=== PATIENT | female | born 1955 | race Caucasian/White ===

== ENCOUNTER 2018-11-25 17:29 | Emergency (ER) | payer MEDICARE ==
--- OUTSIDE RECORDS SUMMARY | ~2018-11-25 | XMS | Clinical Summary ---
Demographics + + + | Address | [address] | | | [place] [address] | + + + | Home Phone | | + + + | Preferred Language | Unknown | + + + | Marital Status | Single | + + + | Anglican Affiliation | Unknown | + + + | Race | Unknown | + + + | Ethnic Group | Unknown | + + + Author + + + | Author | [facility] | + + + | Organization | [facility] | + + + | Address | Unknown | + + + | Phone | Unavailable | + + + Support + + +---------+ + | Name | Relationship | Address | Phone | + + +---------+ + | Ezequiel Chaudhary | ECON | Unknown | | + + +---------+ + Care Team Providers + +------+ + | Care Inspector Subassemblies Name | Role | Phone | + +------+ + | Dr. Felipe | PP | Unavailable | + +------+ + Allergies No Known Allergies Current Medications + + +-------+---------+------+------+-------+ | Prescription | Sig. | Disp. | Refills | Star | End | Statu | | | | | | t | Date | s | | | | | | Date | | | + + +-------+---------+------+------+-------+ | fluoxetine | Take 20 mg by mouth | | | | | Activ | | (PROZAC) 20 MG | daily. | | | | | e | | capsule | | | | | | | + + +-------+---------+------+------+-------+ | tramadol (ULTRAM) | Take 50 mg by mouth | | | | | Activ | | 50 MG tablet | 3 (three) times | | | | | e | | | daily. | | | | | | + + +-------+---------+------+------+-------+ | omeprazole | Take 20 mg by mouth | | | | | Activ | | (PRILOSEC) 20 MG | daily. | | | | | e | | capsule | | | | | | | + + +-------+---------+------+------+-------+ Active Problems + + + | Problem | Noted Date | + + + | Other and unspecified hyperlipidemia | 09/24/2011 | + + + | TSH elevation | 09/23/2011 | + + + | GERD (gastroesophageal reflux disease) | 09/23/2011 | + + + | NSTEMI (non-ST elevated myocardial infarction) | 09/22/2011 | + + + | Palpitations | 09/22/2011 | + + + Family History + + +------+ + | Medical History | Relation | Name | Comments | + + +------+ + | Diabetes type I | Mother | | | + + +------+ + | Thyroid disease | Mother | | | + + +------+ + | Diabetes type I | Sister | | | + + +------+ + + +------+--------+ + | Relation | Name | Status | Comments | + +------+--------+ + | Mother | | | | + +------+--------+ + | Sister | | | | + +------+--------+ + Social History + +-------+ +--------+------+ | Tobacco Use | Types | Packs/Day | Years | Date | | | | | Used | | + +-------+ +--------+------+ | Never Smoker | | | | | + +-------+ +--------+------+ + +---+---+---+ | Smokeless Tobacco: | | | | | Never Used | | | | + +---+---+---+ + + +---------+ + | Alcohol Use | Drinks/We | oz/Week | Comments | | | ek | | | + + +---------+ + | Yes | | | occasionally | + + +---------+ + + + + | Sex Assigned at | Date Recorded | | | | + + + | Not on file | | + + + Last Filed Vital Signs + + + + | Vital Sign | Reading | Time Taken | + + + + | Blood Pressure | 121/57 | 09/24/2011 7:22 AM PST | + + + + | Pulse | 44 | 09/24/2011 7:22 AM PST | + + + + | Temperature | 36.8 C (98.3 F) | 09/24/2011 7:22 AM PST | + + + + | Respiratory Rate | 18 | 09/24/2011 7:22 AM PST | + + + + | Oxygen Saturation | 100% | 09/24/2011 7:22 AM PST | + + + + | Inhaled Oxygen | - | - | | Concentration | | | + + + + | Weight | 81 kg (178 lb 9.2 | 09/24/2011 4:02 AM PST | | | oz) | | + + + + | Height | 165.1 cm (5' 5") | 09/22/2011 11:40 PM PST | + + + + | Body Mass Index | 29.72 | 09/24/2011 4:02 AM PST | + + + + Plan of Treatment Not on file Results Not on filefrom Last 3 Months Insurance + +--------+ +------+-------+ + | Payer | Benefi | Subscriber | Type | Phone | Address | | | t Plan | ID | | | | | | / | | | | | | | Group | | | | | + +--------+ +------+-------+ + | MEDICARE | [employer] | [id number] | | | [address] | | | RE | | | | [place] [id number] | | | IP-OP | | | | | + +--------+ +------+-------+ + + +--------+ +--------+ + + | Guarantor Name | Accoun | Relation to | Date | Phone | Billing Address | | | t Type | Patient | of | | | | | | | | | | + +--------+ +--------+ + + | LOREE CHAUDHARY | Person | Self [birth year] Home: | [address] | | | al/Fam | | [phone] [place] | | | [place] | | | [phone] | + +--------+ +--------+ + +
--- OUTSIDE RECORDS SUMMARY | ~2018-11-25 | XMS | Clinical Summary ---
Demographics + + + | Address | [address] | | | [place] [address] | + + + | Home Phone | | + + + | Preferred Language | Unknown | + + + | Marital Status | Single | + + + | Adventism Affiliation | Unknown | + + + | Race | Unknown | + + + | Ethnic Group | Unknown | + + + Author + + + | Author | [facility] | + + + | Organization | [facility] | + + + | Address | Unknown | + + + | Phone | Unavailable | + + + Support + + +---------+ + | Name | Relationship | Address | Phone | + + +---------+ + | Ezequiel Chaudhary | ECON | Unknown | | + + +---------+ + Care Team Providers + +------+ + | Care Scraper Operator Name | Role | Phone | + [...] +------+-------+ + | MEDICARE | [employer] | [id number] | | | [address] | | | RE | | | | [place] [phone] | | | IP-OP | | | [...] Self | [birth year] Home: | [address] | | | al/Fam | | [phone] | [place] | | | [place] | | | [phone] | + +--------+ +--------+ + +
[2018-11-25] MEDS ORDERED: DICLOFENAC SODI75 MG PO (20:52)
[2018-11-25] MEDS ORDERED: OMEPRAZOLE20 MG PO (20:52)
[2018-11-25] MEDS ORDERED: PROZAC40 MG PO (20:52)
== END 2018-11-25 20:32 | disposition home or self-care (01) ==
LOC: ED 17:29
PROC: 0HQ0XZZ Repair Scalp Skin, External Approach (ICD-10-PCS; principal; 2018-11-25)
DX: S06.0X0A Concussion without loss of consciousness, initial encounter (principal); S01.01XA Laceration without foreign body of scalp, initial encounter; W55.12XA Struck by horse, initial encounter
CPT/HCPCS: 12002; 36415; 70450; 71045; 72125; 80053; 85025; 99284-25; G0480; J2405; J3010